=== PATIENT | male | born 1990 ===

== ENCOUNTER 2017-10-12 15:23 | Emergency (ER) | payer OTHER ==
[2017-10-12 15:27] VITALS: BP 173/76; PULSE 76; RESP 16; TEMP 98.5; O2SAT 99
[2017-10-12] MEDS ORDERED: Sodium Chloride 0.9% 1,000 ML IV STA (15:58)
--- NOTE | 2017-10-12 17:02 | ED PDOC ---
HPI: Abdomen Time Seen by Provider: 10/12/17 15:25 Chief Complaint (Nursing): Abdominal Pain Chief Complaint (Provider): Abdominal Pain History Per: Patient History/Exam Limitations: no limitations Onset/Duration Of Symptoms: Days Current Symptoms Are (Timing): Still Present Additional Complaint(s): Ramírez Burton is a 26 year old male with no significant past medical history who presents to the ED complaining of epigastric pain x6 days. Patient denies nausea, vomiting, diarrhea, and fever. Confirms sore throat. PMD: [facility] Provider Past Medical History Reviewed: Historical Data, Nursing Documentation, Vital Signs Vital Signs: Last Vital Signs Temp 98.5 F 10/12/17 15:25 Pulse 76 10/12/17 15:25 Resp 16 10/12/17 15:25 BP 173/76 H 10/12/17 15:25 Pulse Ox 99 10/12/17 19:14 - Medical History PMH: No Chronic Diseases - Surgical History Surgical History: No Surg Hx - Family History Family History: States: Unknown Family Hx - Social History Current smoker - smoking cessation education provided: Yes Alcohol: Occasional Drugs: Denies - Home Medications Home Medications: Ambulatory Orders Medication Instructions Recorded Famotidine [Pepcid] 20 mg PO BID PRN #10 tab 10/12/17 - Allergies Allergies/Adverse Reactions: Allergies Allergy/AdvReac Type Severity Reaction Status Date / Time No Known Allergies Allergy Verified 10/12/17 15:26 Review of Systems ROS Statement: Except As Marked, All Systems Reviewed And Found Negative Constitutional: Negative for: Fever ENT: Positive for: Throat Pain Gastrointestinal: Positive for: Abdominal Pain (epigastric). Negative for: Nausea, Vomiting, Diarrhea Physical Exam - Reviewed Nursing Documentation Reviewed: Yes Vital Signs Reviewed: Yes - Physical Exam Appears: Positive for: Well, Non-toxic, No Acute Distress Head Exam: Positive for: ATRAUMATIC, NORMAL INSPECTION, NORMOCEPHALIC Skin: Positive for: Normal Color, Warm, DRY Eye Exam: Positive for: EOMI, Normal appearance, PERRL ENT: Positive for: Normal ENT Inspection Neck: Positive for: Normal, Painless ROM, Supple Cardiovascular/Chest: Positive for: Regular Rate, Rhythm. Negative for: Murmur Respiratory: Positive for: Normal Breath Sounds. Negative for: Respiratory Distress Gastrointestinal/Abdominal: Positive for: Tenderness (mild mid-epigastric) Back: Positive for: Normal Inspection. Negative for: L CVA Tenderness, R CVA Tenderness, Vertebral Tenderness Extremity: Positive for: Normal ROM. Negative for: Pedal Edema, Deformity Neurologic/Psych: Positive for: Alert, Oriented (x3). Negative for: Motor/ Sensory Deficits - Laboratory Results Result Diagrams: 10/12/17 17:15 10/12/17 17:15 - ECG O2 Sat by Pulse Oximetry: 99 (RA) Pulse Ox Interpretation: Normal Medical Decision Making Medical Decision Making: Time: 15:43 Initial Impression: abdominal pain Rule out gastritis Plan: --CMP --Lipase --CBC w/ differential --Chest X-Ray two views --Sodium Chloride 0.9% 1,000 ml IV --Pepcid 20 mg IVP --Zofran 4 mg IV --Rapid Strep --Reevaluation Time: 19:00 -- --EKG shows NSR. Upon provider reevaluation patient is feeling better, is medically stable, and requires no further treatment in the ED at this time. Patient will be discharged with Rx for Pepcid. pt feels better. Counseling was provided and all questions were answered regarding diagnosis and need for follow up with PMD. There is agreement to discharge plan. Return if symptoms persist or worsen. Scribe Attestation: Documented by Nicolas Fong acting as a scribe for Marleni Hassan MD. Scribe Attestation: All medical record entries made by the Scribe were at my direction and personally dictated by me. I have reviewed the chart and agree that the record accurately reflects my personal performance of the history, physical exam, medical decision making, and the department course for this patient. I have also personally directed, reviewed, and agree with the discharge instructions and disposition. Disposition - Clinical Impression Clinical Impression: Abdominal pain, Gastritis - Patient ED Disposition Is Patient to be Admitted: No Counseled Patient/Family Regarding: Studies Performed, Diagnosis, Need For Followup, Rx Given - Disposition Referrals: [facility] [Outside] [facility] [Outside] Disposition: Routine/Home Disposition Time: 17:00 Condition: IMPROVED Additional Instructions: follow up with your primary doctor in 1-2 days return to the ED with any worsening or concerning symptoms Prescriptions: Famotidine [Pepcid] 20 mg PO BID PRN #10 tab PRN Reason: Heartburn Instructions: Gastritis (ED) Forms: [employer] (Yi) Print Language: KYRGYZ
[2017-10-12 17:33] LABS: BASO % 0.1 % (0.0-2.0); EOS % 0.2 % (0.0-4.0); HEMATOCRIT 46.1 % (35.0-51.0); LYMPH % 23.5 % (20.0-40.0); MEAN CELL VOLUME 91.9 fl (80.0-94.0); MEAN CORPUSCULAR HEMOGLOBIN 31.7 pg (27.0-31.0); MEAN CORPUSCULAR HGB CONC 34.5 g/dL (33.0-37.0); MEAN PLATELET VOLUME 8.4 fl (7.2-11.7); MONO # 0.4 K/uL (0.0-0.8); MONO % 5.3 % (0.0-10.0); NEUT % 70.9 % (50.0-75.0); NRBC % 0.1 % (0.0-0.0); RED CELL DISTRIBUTION WIDTH 12.5 % (11.5-14.5); WHITE BLOOD COUNT 8.5 K/uL (4.8-10.8)
[2017-10-12 17:47] LABS: POTASSIUM 3.8 MMOL/L (3.6-5.0)
--- NOTE | 2017-10-12 17:47 | RAD ---
HISTORY: abdominal pain rule out pneumonia COMPARISON: None available. TECHNIQUE: Chest PA and lateral FINDINGS: LUNGS: No focal consolidation. Please note that chest x-ray has limited sensitivity for the detection of pulmonary masses. PLEURA: No significant pleural effusion identified. No definite pneumothorax . CARDIOVASCULAR: The cardiomediastinal silhouette appears within normal limits of size. OSSEOUS STRUCTURES: No acute osseous abnormality identified. VISUALIZED UPPER ABDOMEN: Unremarkable. OTHER FINDINGS: None. IMPRESSION: No focal consolidation, significant pleural effusion, or definite pneumothorax identified.
[2017-10-12 17:55] LABS: ALB/GLOB RATIO 1.4 (1.0-2.1); ALKALINE PHOSPHATASE 82 U/L (38-126); ALT/SGPT 81 U/L (21-72); AST/SGOT 42 U/L (17-59); BILIRUBIN,TOTAL 0.8 mg/dl (0.2-1.3); BLOOD UREA NITROGEN 16 mg/dl (9-20); CALCIUM 10.4 mg/dL (8.4-10.2); CARBON DIOXIDE 28 mmol/L (22-30); CHLORIDE 100 mmol/L (98-107); GFR AFRICAN-AMERICAN > 60; GLUCOSE,RANDOM 84 mg/dL (75-110); LIPASE 91 U/L (23-300); SODIUM 140 mmol/l (132-148); TOTAL PROTEIN 8.6 G/DL (6.3-8.2)
--- NOTE | 2017-10-13 15:54 | CARD ---
APPROVED REPORT EKG Measurement Heart [id number] <Conclusion> Normal sinus rhythm Normal ECG
== END 2017-10-12 21:20 | disposition home or self-care (01) ==
LOC: H.ER 15:23
DX: K29.70 Gastritis, unspecified, without bleeding (principal); F17.200 Nicotine dependence, unspecified, uncomplicated
CPT/HCPCS: 71020; 80053; 83690; 84484; 85025; 87070; 87430; 93005; 96374; 99281; J2405; J7040

== ENCOUNTER 2017-12-08 11:52 | Emergency (ER) | payer SELFPAY ==
[2017-12-08 12:10] VITALS: BP 112/71; PULSE 56; RESP 20; TEMP 97.9; O2SAT 99
--- NOTE | 2017-12-08 13:03 | ED PDOC ---
Syncope/Near Syncope/Dizziness Time Seen by Provider: 12/08/17 12:46 Chief Complaint (Nursing): Abdominal Pain History Per: Patient Onset/Duration Of Symptoms: Other (3months) Current Symptoms Are (Timing): Intermittent Episodes Associated Symptoms Preceding Syncopal Episode: No Predromal Symptoms (Sudden Onset) Fall Associated With With Symptoms: No Severity: Mild Additional Complaint(s): Dizziness intermittently x 3 months. 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 Denies palpitations, headache or focal weakness. H/o gastritis, tx'ed for H pylori. Past Medical History Vital Signs: Last Vital Signs Temp 97.9 F 12/08/17 12:08 Pulse 56 L 12/08/17 12:08 Resp 20 12/08/17 12:08 BP 112/71 12/08/17 12:08 Pulse Ox 99 12/08/17 12:08 - Medical History PMH: Gastritis Denies: Chronic Kidney Disease - Family History Family History: States: Unknown Family Hx - Home Medications Home Medications: Ambulatory Orders Medication Instructions Recorded Famotidine [Pepcid] 20 mg PO BID PRN #10 tab 10/12/17 Meclizine [Meclizine*] 25 mg PO Q8 #15 tab 12/08/17 - Allergies Allergies/Adverse Reactions: Allergies Allergy/AdvReac Type Severity Reaction Status Date / Time No Known Allergies Allergy Verified 10/12/17 15:26 Review of Systems ROS Statement: Except As Marked, All Systems Reviewed And Found Negative Neurological: Positive for: Dizziness Physical Exam - Reviewed Nursing Documentation Reviewed: Yes Vital Signs Reviewed: Yes - Physical Exam Appears: Positive for: Non-toxic, No Acute Distress Head Exam: Positive for: ATRAUMATIC, NORMAL INSPECTION, NORMOCEPHALIC Skin: Positive for: Normal Color, Warm, DRY Eye Exam: Positive for: EOMI, Normal appearance, PERRL ENT: Positive for: Normal ENT Inspection Neck: Positive for: Normal, Painless ROM Cardiovascular/Chest: Positive for: Regular Rate, Rhythm Respiratory: Positive for: CNT, Normal Breath Sounds Gastrointestinal/Abdominal: Positive for: Normal Exam, Bowel Sounds, Soft Back: Positive for: Normal Inspection Extremity: Positive for: Normal ROM Neurologic/Psych: Positive for: Alert, Oriented - ECG O2 Sat by Pulse Oximetry: 99 Disposition - Clinical Impression Clinical Impression: Dizziness - Patient ED Disposition Is Patient to be Admitted: No Counseled Patient/Family Regarding: Studies Performed, Diagnosis, Need For Followup, Rx Given - Disposition Referrals: Marck Sewell MD [Medical Doctor] - Disposition: Routine/Home Disposition Time: 14:10 Condition: FAIR Prescriptions: Meclizine [Meclizine*] 25 mg PO Q8 #15 tab Instructions: Vertigo (a Type of Dizziness) (DC) Forms: [employer] (Tajik) Print Language: YORUBA
--- NOTE | 2017-12-08 13:33 | CT ---
PROCEDURE: CT HEAD WITHOUT CONTRAST. HISTORY: r/o bleed COMPARISON: None available. TECHNIQUE: Axial computed tomography images were obtained through the head/brain without intravenous contrast. Radiation dose: Total exam DLP = 980.1 mGy-cm. This CT exam was performed using one or more of the following dose reduction techniques: Automated exposure control, adjustment of the mA and/or kV according to patient size, and/or use of iterative reconstruction technique. FINDINGS: HEMORRHAGE: No intracranial hemorrhage. BRAIN: No mass effect or edema. No atrophy or chronic microvascular ischemic changes. VENTRICLES: Unremarkable. No hydrocephalus. CALVARIUM: Unremarkable. PARANASAL SINUSES: Bilateral maxillary sinus mucosal thickening and secretions. MASTOID AIR CELLS: Unremarkable as visualized. No inflammatory changes. OTHER FINDINGS: None. IMPRESSION: No acute intracranial pathology.
== END 2017-12-08 14:49 | disposition home or self-care (01) ==
LOC: H.ER 11:52
DX: R42 Dizziness and giddiness (principal)

== ENCOUNTER 2018-12-13 09:50 | Emergency (ER) | payer OTHER ==
[2018-12-13] MEDS ORDERED: Iohexol 240 (50 ml) PO ONE (10:24)
[2018-12-13] MEDS ORDERED: Iohexol 240 (50 ml) ONE (10:29)
--- NOTE | 2018-12-13 10:31 | ED PDOC ---
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 is a 28 y/o Male with no significant medical problems, reports to ED with 4d. history of right lower abdominal pain. Pt. reports associated nausea but (- ) vomiting. Pt. reports tactile fever yesterday but no documented fever. Past Medical History Reviewed: Historical Data, Nursing Documentation, Vital Signs - Medical History PMH: No Chronic Diseases, Gastritis Denies: Chronic Kidney Disease - Surgical History Surgical History: No Surg Hx - Family History Family History: States: Unknown Family Hx - Home Medications Home Medications: Ambulatory Orders Medication Instructions Recorded Famotidine [Pepcid] 20 mg PO BID PRN #10 tab 10/12/17 Meclizine [Meclizine*] 25 mg PO Q8 #15 tab 12/08/17 - Allergies Allergies/Adverse Reactions: Allergies Allergy/AdvReac Type Severity Reaction Status Date / Time No Known Allergies Allergy Verified 10/12/17 15:26 Review of Systems Constitutional: Negative for: Fever, Chills Cardiovascular: Negative for: Chest Pain Respiratory: Negative for: Shortness of Breath Gastrointestinal: Positive for: Nausea, Abdominal Pain. Negative for: Vomiting Genitourinary Male: Negative for: Dysuria, Hematuria Physical Exam - Physical Exam Appears: Positive for: Well, Non-toxic Head Exam: Positive for: ATRAUMATIC Skin: Positive for: Normal Color, Warm, Dry Eye Exam: Positive for: Normal appearance ENT: Positive for: Normal ENT Inspection Neck: Positive for: Normal Cardiovascular/Chest: Positive for: Regular Rate, Rhythm Respiratory: Positive for: Normal Breath Sounds Gastrointestinal/Abdominal: Positive for: Soft, Tenderness ((+) RLQ and right mid abdominal tenderness. (+) mild epigastric tenderness). Negative for: Distended, Guarding, Rebound Neurologic/Psych: Positive for: Alert, Oriented - Laboratory Results Result Diagrams: 12/13/18 10:30 12/13/18 10:30 Medical Decision Making Medical Decision Making: IV access established, IVF given IV Zofran given CT abd/pelvis ordered Reassessment, pt. feeling better, no further n/v. Pt. is tolerating po. Re- exam, abdomen is soft/nt. Labs discussed including mildly elevated transaminases. CT finding of hepatic steatorrhea also discussed. Stressed importance of f/u with PMD/clinic. Disposition - Clinical Impression Clinical Impression: Abdominal pain - Patient ED Disposition Is Patient to be Admitted: No Counseled Patient/Family Regarding: Diagnosis, Need For Followup - Disposition Referrals: [facility] [Outside] Disposition: Routine/Home Disposition Time: 15:34 Condition: STABLE Instructions: Nausea and Vomiting, Adult (DC), Acute Abdomen (Belly Pain), Adult (DC) Forms: [employer] [facility] (Lao) Print Language: YORUBA
[2018-12-13] MEDS ORDERED: Sodium Chloride 0.9% 1,000 ML IV SCH (10:45)
[2018-12-13 10:56] LABS: BASO % 0.2 % (0.0-2.0); EOS # 0.1 K/uL (0.0-0.7); EOS % 0.8 % (0.0-4.0); HEMOGLOBIN 15.9 g/dL (12.0-18.0); LYMPH # 1.6 K/uL (1.0-4.3); MEAN CELL VOLUME 90.5 fl (80.0-94.0); MEAN CORPUSCULAR HEMOGLOBIN 31.4 pg (27.0-31.0); MEAN CORPUSCULAR HGB CONC 34.7 g/dL (33.0-37.0); MEAN PLATELET VOLUME 8.3 fl (7.2-11.7); MONO # 0.4 K/uL (0.0-0.8); MONO % 5.1 % (0.0-10.0); NEUT # 5.4 K/uL (1.8-7.0); NEUT % 72.9 % (50.0-75.0); NRBC % 0.1 % (0.0-0.0); RBC 5.05 Mil/uL (4.40-5.90); RED CELL DISTRIBUTION WIDTH 12.7 % (11.5-14.5); WHITE BLOOD COUNT 7.4 K/uL (4.8-10.8)
[2018-12-13 10:59] LABS: URINE BACTERIA RARE (<OCC); URINE BILIRUBIN NEGATIVE (NEGATIVE); URINE BLOOD NEGATIVE (NEGATIVE); URINE CLARITY CLOUDY (Clear); URINE COLOR YELLOW (YELLOW); URINE GLUCOSE (UA) NEG (NEGATIVE); URINE LEUKOCYTE ESTERASE NEG Leu/uL (Negative); URINE PROTEIN NEGATIVE (NEGATIVE); URINE UROBILINOGEN 0.2-1.0 mg/dL (0.2-1.0)
[2018-12-13 11:06] LABS: ALB/GLOB RATIO 1.3 (1.0-2.1); ALBUMIN 4.8 g/dL (3.5-5.0); ALT/SGPT 107 U/L (21-72); AST/SGOT 76 U/L (17-59); BLOOD UREA NITROGEN 14 mg/dl (9-20); CALCIUM 9.9 mg/dL (8.4-10.2); GFR NON-AFRICAN AMERICAN > 60; LIPASE 56 U/L (23-300)
[2018-12-13] MEDS ORDERED: Iohexol 300 100 ML IJ ONE (12:43)
[2018-12-13] MEDS ORDERED: Sodium Chloride 0.9% 50 ML IV ONE (12:43)
--- NOTE | 2018-12-13 13:54 | CT ---
Date of service: 12/13/2018 PROCEDURE: CT Abdomen and Pelvis with contrast HISTORY: RLQ abdominal pain COMPARISON: None. TECHNIQUE: Following oral and intravenous contrast administration, a CT examination of the abdomen and pelvis was performed from the domes of the diaphragms to the symphysis pubis with reformatted datasets provided not only axial but also sagittal and coronal series. Contrast dose: Omnipaque 300, 95 cc Radiation dose: Total exam DLP = 568.2 mGy-cm. This CT exam was performed using one or more of the following dose reduction techniques: Automated exposure control, adjustment of the mA and/or kV according to patient size, and/or use of iterative reconstruction technique. FINDINGS: LOWER THORAX: Unremarkable. LIVER: Diminished attenuation is appreciated throughout the liver compatible hepatic steatosis on a [id number] basis. No mass or intrahepatic biliary dilatation identified. GALLBLADDER AND BILE DUCTS: Gallbladder is distended but is otherwise unremarkable appearing. PANCREAS: Unremarkable. No gross lesion or ductal dilatation. SPLEEN: Unremarkable. ADRENALS: Unremarkable. No mass. KIDNEYS AND URETERS: Unremarkable. No hydronephrosis. No solid mass. VASCULATURE: Unremarkable. No aortic aneurysm. No aortic atherosclerotic calcification or mural plaque present. BOWEL: Mild fecal loading is scattered throughout the large bowel much large-bowel collapsed. Small bowel is unremarkable appearing. Stomach is mildly distend with retained oral contrast material. No gross mural thickening associated. No obstruction. No gross mural thickening. APPENDIX: Normal appendix. PERITONEUM: Unremarkable. No free fluid. No free air. LYMPH NODES: Unremarkable. No enlarged lymph nodes. BLADDER: Urinary bladder is mildly distended with likely abnormally thickened wall suspicious for cystitis. Clinically correlate further. No radiodense urolithiasis is seen in the urinary bladder lumen and no definite diverticulum is seen related either. REPRODUCTIVE: Unremarkable. BONES: No acute fracture identified. Straightened thoracolumbar spine noted. OTHER FINDINGS: None. IMPRESSION: 1. No CT evidence to indicate appendicitis, with the appendix appearing grossly within normal limits. 2. Potential cystitis involving a mildly distended urinary bladder. 3. No bowel obstruction, mesenteric edema, ascites or free intra peritoneal gas collection identified. 4. Hepatic steatosis.
[2018-12-13 16:00] VITALS: BP 125/78; RESP 18; O2SAT 99
== END 2018-12-13 16:01 | disposition home or self-care (01) ==
LOC: H.ER 09:50
DX: R10.31 Right lower quadrant pain (principal); R74.0 Nonspecific elevation of levels of transaminase and lactic acid dehydrogenase [LDH]
CPT/HCPCS: 74177; 80053; 81003; 83690; 85025; 96374; 99283; J2405; J7030; Q9966; Q9967